=== PATIENT | female | born 1950 | race Caucasian/White ===

== ENCOUNTER 2019-01-15 16:31 | Emergency (ER) | payer OTHER ==
[~2019-01-15] VITALS: Ht 152.4 cm; Wt 86.2 kg
[2019-01-15 16:59] VITALS: BP 157/74
--- NOTE | 2019-01-15 18:13 | PHYS DOC ---
Past Medical History Past Medical History: High Cholesterol (LALO DENNY APRN) Past Surgical History: Tubal ligation (LALO DENNY APRN) Alcohol Use: None Drug Use: None (LALO DENNY APRN) Adult General Chief Complaint Chief Complaint: KNEE SWELLING HPI HPI Patient is a 68 year old female who presents to the ER with complaints of L knee pain after feeling a pop while getting into her car today. Pt denies any fall or swelling. States she felt a pop behind her knee and has been unable to bear weight since feeling the pop. She denies any pain at rest. She denies any decreased ROM, numbness, tingling, or redness. She reports a history of arthritis and has seen Dr. Carreon in the past for right knee pain problems. (LALO DENNY APRN) Review of Systems Review of Systems Constitutional: Denies fever or chills [] Musculoskeletal: See HPI Integument: Denies rash or skin lesions [] Neurologic: Denies headache, focal weakness or sensory changes [] (LALO DENNY APRN) Physical Exam Physical Exam Constitutional: Well developed, well nourished, no acute distress, non-toxic appearance. [] HENT: Normocephalic, atraumatic, bilateral external ears normal, nose normal. [] Eyes: PERRLA, conjunctiva normal, no discharge. [] Neck: Normal range of motion, no stridor. [] Lungs & Thorax: respirations even and unlabored, no retractions. Skin: Warm, dry, no erythema, no rash. [] Extremities: Left knee no cyanosis, ROM intact, no edema, negative anterior drawer and posterior drawer testing, pt unable to tolerate weight bearing, no crepitus, LLE pedal, posterior tibial, and popliteal pulses are 2+, LLE cap refill < 2 seconds Neurologic: Alert and oriented X 3, normal motor function, normal sensory function, no focal deficits noted. [] Psychologic: Affect normal, judgement normal, mood normal. [] (LALO DENNY APRN) Current Patient Data Vital Signs Vital Signs Date Time Temp Pulse Resp B/P (MAP) Pulse Ox O2 Delivery O2 Flow Rate FiO2 01/15/19 16:59 98.3 83 18 157/74 (101) 93 Room Air 98.3 (AMANDEEP MILLER MD) EKG EKG [] (LALO DENNY APRN) Radiology/Procedures Radiology/Procedures xray negative for acute fracture or dislocation, read by Dr. Tidwell [] (LALO DENNY APRN) Course & Med Decision Making Course & Med Decision Making Pertinent Labs and Imaging studies reviewed. (See chart for details) Dx: L knee injury, L knee pain x-ray was negative for any acute findings. Recommended use of a walker to patient. Pt denies pain with movement of knee, states it continues to hurt with weightbearing only. Pt instructed to follow up with Dr. Carreon next week. Patient verbalized an understanding of home care, medications, follow-up, and return to ED instructions and was in agreement with the plan of care. [] (LALO DENNY APRN) Course & Med Decision Making Staff Physician Addendum: I was working in the ER during the course of this patient's visit. I was available for consultation as needed, but I was not directly involved in the care of this patient. (AMANDEEP MILLER MD) Dragon Disclaimer Dragon Disclaimer This electronic medical record was generated, in whole or in part, using a voice recognition dictation system. (LALO DENNY APRN) Departure Departure Impression: Primary Impression: Posterior left knee pain Additional Impression: Left knee injury Disposition: HOME, SELF-CARE Condition: STABLE Referrals: JESSICA CARREON MD Patient Instructions: Knee Pain, [id number] Additional Instructions: Fill the prescription and use as directed. Activity as tolerated, use of a walker recommended. May apply ice to sore areas as needed. Follow up with Dr. Carreon next week, call Thursday for an appointment. Return to the ER if symptoms worsen. Scripts Hydrocodone Bit/Acetaminophen (HYDROCODONE-APAP 5-325 ) 1 Tab Tablet 1 TAB PO PRN Q6HRS PRN for PAIN for 2 Days, #8 TAB 0 Refills Prov: LALO DNENY APRN 01/15/19 Problem Qualifiers Additional Impression: Left knee injury Encounter type: initial encounter Qualified Codes: S89.92XA - Unspecified injury of left lower leg, initial encounter LALO DENNY APRN Jan 15, 2019 18:13 AMANDEEP MILLER MD Jan 17, 2019 21:43
[2019-01-15] MEDS ORDERED: HYDR-2761 PO (18:56)
--- NOTE | 2019-01-15 19:49 | RAD ---
Indication:pain after feeling a pop today while getting into car TECHNIQUE: 3 views of the left knee COMPARISON:None FINDINGS/ impression: No acute fracture or dislocation. Mild tricompartmental osteoarthritis. Trace suprapatellar effusion. Electronically signed by: Michael Gonzalez DO (01/15/2019 7:47 PM) [facility]
== END 2019-01-15 19:09 | disposition home or self-care (01) ==
LOC: ER 16:31
DX: S89.92XA Unspecified injury of left lower leg, initial encounter (principal); E78.00 Pure hypercholesterolemia, unspecified; X50.9XXA Other and unspecified overexertion or strenuous movements or postures, initial encounter; Y93.89 Activity, other specified; Y92.89 Other specified places as the place of occurrence of the external cause; Y99.8 Other external cause status
CPT/HCPCS: 73562; 99283

== ENCOUNTER → 2022-03-28 | Outpatient (CLI) | payer OTHER ==
[~2022-03-28] MED LIST: HYDR-2761 PO
--- NOTE | 2022-03-28 14:52 | KCIC ---
Coronary calcium score CT chest without contrast History: Cardiovascular screening, hyperlipidemia Technique: With retrospective electrocardiogram gating axial reconstructed noncontrast images of the chest at the level of the coronary arteries was performed. The upper thorax was not fully included fo r purposes of this exam. Images were post processed on workstation and calcium score calculated using the modified Agatston Janowitz protocol. Findings: Calcium score Left main coronary artery 0 Left anterior descending artery 3.4 Left circumflex artery 0 Right coronary artery 31.7 Total coronary calcium score is 35.1. Total calcium score is 35.1. Plaque is present. You have mild heart disease. Your chance of having a heart attack is moderate. Talk to your doctor about quitting smoking, eating better, beginning an exe rcise program and any other treatment you may need. Additional findings: There is a small to moderate hiatal hernia. The heart is normal in size. The vis ualized portion of the thoracic aorta is normal in caliber. No visualized thoracic lymphadenopathy. IMPRESSION: 1. Total calcium score is 35.1. Plaque is present. You have mild heart disease. Your chance of having a heart attack is moderate. Talk to your doctor about quitting smoking, eating better, beginning an exercise program and any other treatment you may need. 2. Small to moderate hiatal hernia. PQRS Compliance Statement: One or more of the following individualized dose reduction techniques were utilized for this examinat ion: 1. Automated exposure control 2. Adjustment of the mA and/or kV according to patient size 3. Use of iterative reconstruction technique Electronically signed by: Jaja Bryant MD (03/28/2022 2:50 PM) [id number]
== END ==
LOC: KCIC 09:19
PROVIDERS: ATTEND Family Medicine
DX: I25.10 Atherosclerotic heart disease of native coronary artery without angina pectoris (principal); K44.9 Diaphragmatic hernia without obstruction or gangrene
CPT/HCPCS: 75571

== ENCOUNTER → 2022-03-28 | Outpatient (CLI) | payer MEDICARE ==
--- NOTE | 2022-03-28 14:14 | KCIC ---
EXAM: XR THORACIC SPINE 3VIEWS 03/28/2022 9:16 AM CLINICAL INDICATION: Bilateral thoracic pain. Degenerative disc disease. COMPARISON: None TECHNIQUE: AP, lateral, and swimmer's views of the thoracic spine FINDINGS: No acute fracture. Alignment is normal. Disc spaces are maintained. There are tiny anterio r osteophytes at multiple levels. The visualized portion of the lungs are clear. There is a probable small moderate hiatal hernia. IMPRESSION: 1. Mild degenerative disc disease. 2. Small to moderate hiatal hernia. Electronically signed by: Jaja Bryant MD (03/28/2022 2:12 PM) [id number]
== END ==
LOC: KCIC 09:13
PROVIDERS: ATTEND Family Medicine
DX: M51.34 Other intervertebral disc degeneration, thoracic region (principal); K44.9 Diaphragmatic hernia without obstruction or gangrene; M25.78 Osteophyte, vertebrae
CPT/HCPCS: 72072